=== PATIENT | female | born 1990 | race Caucasian/White ===

== ENCOUNTER 2017-07-28 10:41 | Emergency (ER) | payer OTHER ==
[2017-07-28 10:54] VITALS: BP 112/70; PULSE 71; TEMP 98.6; BMI 21.9
--- NOTE | 2017-07-28 11:18 | PDOC ---
History of Present Illness - General Chief Complaint: Vaginal Bleeding Stated Complaint: BLEEDING (19 WKS ) Time Seen by Provider: 07/28/17 10:58 History Source: Patient - History of Present Illness Timing/Duration: reports: constant Past History - Past Medical History Allergies/Adverse Reactions: Allergies Allergy/AdvReac Type Severity Reaction Status Date / Time No Known Allergies Allergy Verified 07/28/17 10:54 Home Medications: Ambulatory Orders Ferrous Sulfate 325 mg PO BID 07/28/17 Vit/Iron Fumarate/FA [ Tablet] 1 each PO DAILY 07/28/17 Anemia: Yes COPD: No - Immunization History Td Vaccination: Yes Immunization Up to Date: Yes - Suicide/Smoking/Psychosocial Hx Smoking Status: No Smoking History: Never smoked Have you smoked in the past 12 months: No Number of Cigarettes Smoked Daily: 0 Hx Alcohol Use: No Drug/Substance Use Hx: No Substance Use Type: None Review of Systems - Review of Systems Constitutional: No: Chills, Fever ABD/GI: Yes: Nausea, Vomiting, Abdominal cramping : No: Dysuria *Physical Exam - Vital Signs Last Vital Signs Temp Pulse Resp BP Pulse Ox 98.6 F 71 20 112/70 99 07/28/17 10:51 07/28/17 10:51 07/28/17 10:51 07/28/17 10:51 07/28/17 10:51 - Physical Exam General Appearance: Yes: Appropriately Dressed. No: Apparent Distress HEENT: positive: Normal Voice Neck: positive: Supple Respiratory/Chest: negative: Respiratory Distress Female Pelvic Exam: positive: cervical os closed, normal adnexa, vaginal bleeding (trace bleeding). negative: CMT Gastrointestinal/Abdominal: positive: Tender (mild ttp diffusely. NT over mcburneys), Soft Musculoskeletal: negative: CVA Tenderness Integumentary: positive: Dry, Warm Neurologic: positive: Fully Oriented, Alert, Normal Mood/Affect ED Treatment Course - LABORATORY CBC & Chemistry Diagram: 07/28/17 14:27 07/28/17 14:27 - RADIOLOGY Radiology Studies Ordered: Category Date Time Status TRANSVAGINAL US PREG [US] Stat Ultrasound 07/28/17 11:02 Ordered Medical Decision Making - Medical Decision Making 07/28/17 11:03 27 yo F, , ~18 weeks per dates, f/u with OB and no issues w/ preg so far , here w/ vaginal bleeding w/ small clots since last night. States bleeding improved today. Has had abd "soreness" and n/v on and off throughout w / no change in baseline. No dysuria, f/c. No trauma. Non-smoker See exam Second trimester bleed No issues w/ preg so far No h/o abruption, no trauma, no tob hx, BP wnl Well carson and stable w/ trace vag bled w/ closed os R/o previa -T&S -Beta -US -UA 07/28/17 13:45 Pt signed out to resident at this point *DC/Admit/Observation/Transfer Diagnosis at time of Disposition: Placenta previa - Discharge Dispostion Disposition: HOME Condition at time of disposition: Guarded - Referrals Referrals: Janneth Pandya MD [Staff Physician] - Inder Lundy MD [Primary Care Provider] - - Patient Instructions Printed Discharge Instructions: DI for Placenta Previa Additional Instructions: Follow-up with Dr. Pandya within 1-2 days. Remember to get plenty of rest as discussed and make sure not to do any heavy lifting. Also make sure to refrain from sexual activity. Return to emergency department if you have any new, worsening or concerning symptoms ESPECIALLY if you have any more bleeding. - Post Discharge Activity Forms/Work/School Notes: Back to Work
[2017-07-28 12:35] LABS: URINE APPEARANCE CLEAR; URINE BILIRUBIN NEGATIVE (NEGATIVE); URINE COLOR LT. YELLOW; URINE GLUCOSE (UA) NEGATIVE (NEGATIVE); URINE KETONE NEGATIVE (NEGATIVE); URINE NITRITE NEGATIVE (NEGATIVE); URINE PROTEIN NEGATIVE (NEGATIVE); URINE UROBILINOGEN 0.2 mg/dL (0.2-1.0)
[2017-07-28 12:37] LABS: URINE BLOOD TRACE (NEGATIVE)
--- NOTE | 2017-07-28 13:59 | PDOC ---
*Physical Exam - Vital Signs Last Vital Signs Temp Pulse Resp BP Pulse Ox 98.6 F 71 20 112/70 99 07/28/17 10:51 07/28/17 10:51 07/28/17 10:51 07/28/17 10:51 07/28/17 10:51 ED Treatment Course - LABORATORY CBC & Chemistry Diagram: 07/28/17 14:27 07/28/17 14:27 - ADDITIONAL ORDERS Additional order review: Laboratory Results 07/28/17 07/28/17 07/28/17 12:02 12:02 11:02 Beta HCG, Quant 38892.8 Urine Color Lt. yellow Urine Appearance Clear Urine pH 7.0 Ur Specific [place] 1.020 Urine Protein Negative Urine Glucose (UA) Negative Urine Ketones Negative Urine Blood Trace H Urine Nitrite Negative Urine Bilirubin Negative Urine Urobilinogen 0.2 Blood Type O POSITIVE Antibody Screen Negative Medical Decision Making - Medical Decision Making 07/28/17 14:41 Care taken over from DAVI Espino. CBC/CMP ordered to investigate source of bleeding. Patient refused labs as she does not want to wait extra time. 07/28/17 15:19 Anterior Placenta Previa noted on ultrasound. Patient noted to have eloped when attempted to inform patient of exam. Patient non-responsive but emergency contact (mother) contacted via phone and expressed it was very important for patients to return. 07/28/17 16:24 Patient consented to labs Discussed patient with Dr. Pandya (OBGYN). Recommended outpatient follow-up as soon as possible with pelvic rest and bedrest as much as possible. 07/28/17 17:00 *DC/Admit/Observation/Transfer Diagnosis at time of Disposition: Placenta previa - Discharge Dispostion Condition at time of disposition: Guarded - Referrals Referrals: Inder Lundy MD [Primary Care Provider] - - Patient Instructions - Post Discharge Activity
[2017-07-28 15:08] LABS: URINE BACTERIA RARE /hpf (NONE SEEN); URINE MUCUS RARE; URINE WBC 1 /hpf (3-5)
--- NOTE | 2017-07-28 15:20 | PDOC ---
*Physical Exam - Vital Signs Last Vital Signs Temp Pulse Resp BP Pulse Ox 98.6 F 71 20 112/70 99 07/28/17 10:51 07/28/17 10:51 07/28/17 10:51 07/28/17 10:51 07/28/17 10:51 <Maryjane Suarez - Last Filed: 07/28/17 15:33> - Vital Signs Last Vital Signs Temp Pulse Resp BP Pulse Ox 98.6 F 71 20 112/70 99 07/28/17 10:51 07/28/17 10:51 07/28/17 10:51 07/28/17 10:51 07/28/17 10:51 <Nassef,Yomna - Last Filed: 07/28/17 18:52> ED Treatment Course - ADDITIONAL ORDERS Additional order review: Laboratory Results 07/28/17 07/28/17 07/28/17 12:02 12:02 11:02 Beta HCG, Quant 41668.8 Urine Color Lt. yellow Urine Appearance Clear Urine pH 7.0 Ur Specific [place] 1.020 Urine Protein Negative Urine Glucose (UA) Negative Urine Ketones Negative Urine Blood Trace H Urine Nitrite Negative Urine Bilirubin Negative Urine Urobilinogen 0.2 Urine WBC (Auto) 1 Urine RBC (Auto) None Ur Epithelial Cells Rare Urine Bacteria Rare Urine Mucus Rare Blood Type O POSITIVE Antibody Screen Negative <Maryjane Suarez - Last Filed: 07/28/17 15:33> - LABORATORY CBC & Chemistry Diagram: 07/28/17 14:27 07/28/17 14:27 - ADDITIONAL ORDERS Additional order review: Laboratory Results 07/28/17 07/28/17 07/28/17 12:02 12:02 11:02 Beta HCG, Quant 36354.8 Urine Color Lt. yellow Urine Appearance Clear Urine pH 7.0 Ur Specific [place] 1.020 Urine Protein Negative Urine Glucose (UA) Negative Urine Ketones Negative Urine Blood Trace H Urine Nitrite Negative Urine Bilirubin Negative Urine Urobilinogen 0.2 Urine WBC (Auto) 1 Urine RBC (Auto) None Ur Epithelial Cells Rare Urine Bacteria Rare Urine Mucus Rare Blood Type O POSITIVE Antibody Screen Negative <Nassef,Yomna - Last Filed: 07/28/17 18:52> Medical Decision Making - Medical Decision Making 07/28/17 15:[address] Pandya regarding patient's case. Awaiting call back. <Maryjane Suarez - Last Filed: 07/28/17 15:33> - Medical Decision Making 07/28/17 15:16 Patient eloped from the vertical area while awaiting the results of her ultrasound. Her ultrasound showed a placenta previa. Multiple calls were made by our scribe to the patient's home number that's documented in our system with no response. There is no voicemail to leave a message. We will attempt to call the patient's emergency contact as well. 07/28/17 15:20 ELISEO Guzman able to get in touch with the patient's mother and emergency contact who has been informed that patient needs to return to the ED immediately. 07/28/17 15:45 Patient returns to the emergency department, stated that she was picking up food. Results of ultrasound discussed with patient. At this point, we advised the patient that we would obtain a obstetrics consult with her OB Dr. Pandya as well as check a CBC and CMP which she declined earlier. The patient is amenable to the plan. Dr. Pandya recommends pelvic rest for the patient and outpatient follow-up. Labs are remarkable for anemia with a hemoglobin of 8.4. Hgb 1 year ago was in the 11 range. The patient states that she's been told she is severely anemic before. She remains hemodynamically stable and denies any shortness of breath, CP, or dizziness. She states that she is no longer having any bleeding. I advised the patient that if she has any more bleeding, chances are she may lose enough blood to require blood transfusion. I also discussed that if she becomes short of breath, dizzy, has chest pain or any other concerning symptoms that she should return as this likely represents severe anemia. We went over the diagnosis of placenta previa and advised pelvic rest. The patient is aware that she should not insert anything into her vagina, and should not have sexual intercourse. We also advised her not to do any heavy lifting or strenuous exercise. The patient expressed understanding and requests discharged home. I discussed the physical exam findings, ancillary test results and final diagnoses with the patient. I answered all of the patient's questions. The patient was satisfied with the care received and felt comfortable with the discharge plan and treatment plan. The patient will call their primary care physician within 24 hours to arrange follow-up and will return to the Emergency Department with any new, persistent or worsening symptoms. <Brittany Fiore - Last Filed: 07/28/17 18:52> *DC/Admit/Observation/Transfer <Maryjane Suarez - Last Filed: 07/28/17 15:33> <Samm Fioreemilio - Last Filed: 07/28/17 18:52> Diagnosis at time of Disposition: Placenta previa - Discharge Dispostion Disposition: HOME Condition at time of disposition: Guarded - Referrals Referrals: Janneth Pandya MD [Staff Physician] - Inder Lundy MD [Primary Care Provider] - - Patient Instructions Printed Discharge Instructions: DI for Placenta Previa Additional Instructions: Follow-up with Dr. Pandya within 1-2 days. Remember to get plenty of rest as discussed and make sure not to do any heavy lifting. Also make sure to refrain from sexual activity. Return to emergency department if you have any new, worsening or concerning symptoms ESPECIALLY if you have any more bleeding. - Post Discharge Activity Forms/Work/School Notes: Back to Work
[2017-07-28 16:26] LABS: BASOPHIL 0.4 % (0-2.0); EOSINOPHIL 0.3 % (0-4.5); MCH 23.1 pg (25.7-33.7); MEAN CELL VOLUME 72.4 fl (80-96); MEAN PLT VOLUME 8.9 fl (7.5-11.1); NEUTROPHILS 72.9 % (42.8-82.8); PLATELET COUNT 277 K/MM3 (134-434); RDW 23.7 % (11.6-15.6); WHITE BLOOD COUNT 7.4 K/mm3 (4.0-10.0)
[2017-07-28 17:01] LABS: ALBUMIN 3.3 g/dl (3.4-5.0); ALK PHOS 63 U/L (45-117); ANION GAP 10 (8-16); BILIRUBIN,TOTAL 0.3 mg/dL (0.2-1.0); CO2 24 mmol/L (21-32); CREATININE 0.6 mg/dL (0.55-1.02); GLUCOSE,RANDOM 101 mg/dL (74-106); SGOT/AST 18 U/L (15-37); SGPT/ALT 27 U/L (12-78); TOT PROT 6.9 g/dl (6.4-8.2)
[2017-07-28 19:11] LABS: URINE LEUK ESTERASE Negative (NEGATIVE)
[2017-07-28 21:23] LABS: PLATELET COMMENTS RARE GIANT PLTS
[2017-07-28 21:24] LABS: ANISOCYTOSIS 3+; HYPOCHROMIA 1+; MACROCYTOSIS 1+; MICROCYTOSIS 2+; POIKILOCYTOSIS 1+; POLYCHROMASIA 1+
== END 2017-07-28 17:39 | disposition home or self-care (01) ==
LOC: JER 10:41
DX: O26.892 Other specified pregnancy related conditions, second trimester (principal); O44.02 Complete placenta previa NOS or without hemorrhage, second trimester; Z3A.18 18 weeks gestation of pregnancy
CPT/HCPCS: 36415; 76817-TC; 80053; 81003; 81015; 84702; 85025; 86850; 86900; 86901; 99282-25